=== PATIENT | male | born 1960 | race Native Hawaiian/Other Pacific Islander ===

== ENCOUNTER 2020-03-28 16:55 | Emergency (ER) | payer OTHER ==
[~2020-03-28] VITALS: Ht 177.8 cm; Wt 113.4 kg
[2020-03-28 16:55] VITALS: TEMP 96.9
[2020-03-28 17:27] LABS: PLATELET COUNT 318 K/uL (142-355)
[2020-03-28 17:30] LABS: POTASSIUM 4.2 mmol/L (3.6-5.2); SODIUM 137 mmol/L (136-145)
[2020-03-28 20:40] VITALS: BP 101/62
== END 2020-03-28 20:40 | disposition short-term general hospital (02) ==
LOC: ED 16:58
PROVIDERS: Family Medicine
PROC: 0T9B70Z Drainage of Bladder with Drainage Device, Via Natural or Artificial Opening (ICD-10-PCS; principal; 2020-03-28)
PROC: 0BH17EZ Insertion of Endotracheal Airway into Trachea, Via Natural or Artificial Opening (ICD-10-PCS; 2020-03-28)
PROC: 5A1935Z Respiratory Ventilation, Less than 24 Consecutive Hours (ICD-10-PCS; 2020-03-28)
DX: J96.90 Respiratory failure, unspecified, unspecified whether with hypoxia or hypercapnia (principal); A41.9 Sepsis, unspecified organism; T43.621A Poisoning by amphetamines, accidental (unintentional), initial encounter; Y92.410 Unspecified street and highway as the place of occurrence of the external cause; Z03.818 Encounter for observation for suspected exposure to other biological agents ruled out
CPT/HCPCS: 31500; 36415; 36600; 51702; 80053; 80307; 81000; 82805; 83605; 84484; 85027; 85379; 87040; 87635; 94002; 96360; 96361; 96365; 96366; 99285; J1265; J2543; Q9963; U0003